=== PATIENT | male | born 1945 | race Caucasian/White ===

== ENCOUNTER 2016-07-16 19:20 | Inpatient (IN) ==
[2016-07-16 20:21] LABS: MANUAL DIFF NEEDED? NO
[2016-07-16 20:23] LABS: BASO% 0.3 % (0.0-0.8); EOS# 0.05 X1000 (0.0-0.7); EOS% 0.7 % (0.0-10.0); HEMATOCRIT 45.7 % (42.0-52.0); HEMOGLOBIN 15.4 g/dL (14.0-18.0); LYMPH# 0.91 X1000 (1.2-3.4); LYMPH% 13.3 % (20.5-51.1); MCH 33.4 PG (27-31); MCHC 33.7 g/dL (33-37); MCV 99.1 FL (81-99); MONO# 0.36 X1000 (0.11-0.59); MONO% 5.2 % (1.7-9.3); MPV 9.5 FL (7.4-10.4); NEUT% 80.5 % (42.2-75.2); PLT 162 X1000 (130-400); RBC 4.61 XMIL (4.7-6.1)
[2016-07-16 20:31] LABS: INR 1.04; PROTIME 10.9 Seconds (9.2-11.7)
[2016-07-16 20:42] LABS: AGAP 12; ALBUMIN 4.3 g/dL (3.5-5.0); ALKALINE PHOSPHATASE 88 U/L (32-122); BUN 11 mg/dL (8-22); CHLORIDE 98 mmol/L (98-107); CK PROFILE 78 U/L (24-204); COSMO 276; GOT 19 U/L (10-34); GPT 19 U/L (10-44); POTASSIUM 4.4 mmol/L (3.5-5.1); SODIUM 138 mmol/L (136-145); TCO2 28 mmol/L (25-35); TOTAL BILIRUBIN 0.43 mg/dL (0.20-1.00)
[2016-07-16] MEDS ORDERED: ATIVAN ONE (21:31)
[2016-07-16] MEDS ORDERED: ATIVAN IV ONE (21:38)
[2016-07-16] MEDS ORDERED: KEPPRA 1,000 MG in NS 100 ML IV ONE (21:44)
[2016-07-17] MEDS ORDERED: THIAMINE IM ONE (00:30)
[2016-07-17] MEDS ORDERED: ATIVAN IV PRN (00:30)
[2016-07-17] MEDS ORDERED: TYLENOL PO PRN (00:30)
[2016-07-17] MEDS ORDERED: ZOFRAN IV PRN (00:30)
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
[2016-07-17 06:36] LABS: MANUAL DIFF NEEDED? NO
[2016-07-17 06:41] LABS: BASO% 0.2 % (0.0-0.8); EOS# 0.14 X1000 (0.0-0.7); EOS% 2.2 % (0.0-10.0); HEMATOCRIT 41.5 % (42.0-52.0); HEMOGLOBIN 13.9 g/dL (14.0-18.0); LYMPH# 1.51 X1000 (1.2-3.4); LYMPH% 23.3 % (20.5-51.1); MCH 33.5 PG (27-31); MCHC 33.5 g/dL (33-37); MONO# 0.51 X1000 (0.11-0.59); MONO% 7.9 % (1.7-9.3); MPV 9.6 FL (7.4-10.4); NEUT% 66.4 % (42.2-75.2); PLT 141 X1000 (130-400); RBC 4.15 XMIL (4.7-6.1)
[2016-07-17 06:59] LABS: AGAP 11; ALBUMIN 3.7 g/dL (3.5-5.0); ALKALINE PHOSPHATASE 71 U/L (32-122); BUN 9 mg/dL (8-22); CHLORIDE 104 mmol/L (98-107); COSMO 279; GOT 16 U/L (10-34); GPT 15 U/L (10-44); POTASSIUM 3.9 mmol/L (3.5-5.1); SODIUM 141 mmol/L (136-145); TCO2 26 mmol/L (25-35); TOTAL BILIRUBIN 0.68 mg/dL (0.20-1.00); TOTAL PROTEIN 6.3 g/dL (6.3-8.3)
--- NOTE | 2016-07-17 07:57 | Diag Imaging Result Document ---
PROCEDURE NAME: HEAD W/O CONTRAST - 07/16/2016 CT OF THE HEAD WITHOUT CONTRAST: FINDINGS: There is marked patient motion. Two acquisitions were obtained. There is no evidence of mass effect, bleed, or abnormal extra-axial fluid collection. The visualized paranasal sinuses are clear and the calvarium is intact. IMPRESSION: No evidence of acute intracranial disease.
--- NOTE | 2016-07-17 08:25 | Diag Imaging Result Document ---
PROCEDURE NAME: CHEST-2 VIEWS - 07/16/2016 FRONTAL AND LATERAL CHEST, TWO VIEWS: FINDINGS: The lungs are well expanded. The heart is not enlarged. The pulmonary vessels are small. No pneumonia. Atelectasis or scarring in the left base. No pleural effusions. No free air beneath the diaphragm. IMPRESSION: Mild increased markings in the left base believed to be atelectasis or fibrosis.
[2016-07-17] MEDS: NS 1,000 ML IV SCH ×4 (10:08→20:36)
[2016-07-17] MEDS: KEPPRA PO SCH ×2 (10:09→20:34)
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
--- NOTE | 2016-07-17 17:12 | Diag Imaging Result Document ---
PROCEDURE NAME: MRI BRAIN W W/O CONTRAST - 07/17/2016 MRI BRAIN WITH AND WITHOUT IV CONTRAST: COMPARISON: None available. FINDINGS: There is no evidence of acute infarct. There is no discrete intracranial mass, mass effect, or intracranial hemorrhage. There is no evidence of abnormal intracranial enhancement. The white matter signal is unremarkable. Surrounding soft tissues and bony structures are grossly unremarkable. IMPRESSION: Essentially unremarkable MRI brain with and without IV contrast.
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
--- NOTE | 2016-07-17 19:32 | EEG REPORT ---
DATE: 07/17/2016 ELECTROENCEPHALOGRAM: #[id number] done on 07/17/2016. COMMENT: This is a digitally recorded EEG on a 70-year-old patient with history suggesting recent onset seizures. FINDINGS: During waking, medium amplitude 10 Hz, posterior rhythm is present bilaterally and reacts at times to eye opening. Background contains polymorphic and rhythmic theta frequencies over the frontal and central regions symmetrically. Frontal delta was minimal but present at times during waking. Photic stimulation did not significantly alter the record. Drowsing occurred briefly with appearance of more generalized slowing and attenuation of the posterior rhythm. Stage II sleep was not recorded. No definite epileptiform discharge was identified. INTERPRETATION: Abnormal electroencephalogram because of minimal generalized slowing. CORRELATION: This is indicative of a diffuse encephalopathy and is nonspecific. The absence of epileptiform discharges on a single EEG does not exclude a clinical diagnosis of seizures. cc: Estela Giraldo III, MD
[2016-07-18] MEDS: NS 1,000 ML IV SCH ×2 (04:10→04:24)
--- NOTE | 2016-07-18 04:39 | PROVIDER DOCUMENTATION ---
This chart was entered by Wagner Montana Scribe, acting as scribe for Zain Bright MD. HPI-Syncope/Dizziness - General Chief Complaint: Syncope Stated Complaint: syncopal episode Time Seen by Provider: 07/16/16 19:31 Source: patient, family Allergies/Adverse Reactions: Patient Allergies Allergy/AdvReac Type Severity Reaction Status Date / Time Penicillins Allergy Unknown Verified 07/17/16 10:18 Home Medications: Home Medication List Medication Instructions Recorded Confirmed Last Taken Type Lisinopril 10 mg PO QHS 07/17/16 07/17/16 07/15/16 History SIMVAstatin [Zocor] 40 mg PO QHS 07/17/16 07/17/16 07/16/16 History Terazosin [Hytrin] 2 mg PO QHS 07/17/16 07/17/16 07/16/16 History - History of Present Illness-Syncope/Dizzy Nature of Presenting Problem: Pt is a 70 yom who presents to ER via EMS after having a possible seizure. Pt's granddaughter reports that earlier today, pt was in the kitchen getting food when he opened the [employer] drawer and "just stopped." Granddaughter reports that pt stood at drawer, not moving, not talking, his hand (laterality unspecified) started shaking, and pt had a blank stare in his face. Granddaughter did not specify how long this lasted but reports that pt then fell to the ground and recovered quickly, but was not aware that he had fallen and stated "I thought I just laid on the ground and took a nap." Family reports that pt has been having an increase in memory impairment and pt states "everything tastes like vinegar." Granddaughter reports that after pt regained responsiveness after falling, he was A/Ox3, but was unaware of what had just happened. Prior Episodes: reports: recent history Onset/Duration: reports: unsure, 1-3 hours ago Timing: reports: improving Position/Activity at time of episode: reports: standing Context: reports: became unresponsive, collapsed, felt faint, confused after event (recent memory impaired, but was A/Ox3), seizure activity observed Loss of Consciousness: prolonged (minutes) Current Symptoms: denies: fever, chills, sweaty, chest pain, breathing difficulty, short of breath, abdominal pain, nausea, vomiting, shoulder pain, arm pain, weakness, lightheaded, dizzy, headache, pale, weak pulse, headache, blurred vision, lightheaded Similar symptoms previously: reports: workup for same problem Recently Seen Here or By Another Healthcare Provider: Yes Review of Systems - Adult - REVIEW OF SYSTEMS - ADULT Constitutional: denies: chills, fever, fatique, night sweats, weight gain, weight loss Eyes: reports: no symptoms reported Ears, Nose, Mouth & Throat: reports: no symptoms reported Cardiovascular: denies: chest pain, edema, heart murmur, irregular heart rate, orthopnea, palpitations, poor circulation, PND, syncope Respiratory: denies: chronic cough, cough, dyspnea on exertion, excessive sputum production, hemoptysis, pleurisy, shortness of breath, wheezing Gastrointestinal: reports: no symptoms reported Genitourinary: reports: no symptoms reported Musculoskeletal: reports: no symptoms reported Integumentary: reports: no symptoms reported Neurological: reports: loss of balance, seizure, slurred speech, syncope, tremors, other (Sensory change (taste)). denies: ataxia, dizziness/vertigo, headache/migraines, numbness, paresthesia Psychiatric: reports: no symptoms reported Endocrine: reports: no symptoms reported Hematologic/Lymphatic: reports: no symptoms reported Allergic/Immunologic: reports: no symptoms reported All Other Systems: Reviewed and Negative Past History - Adult - PAST MEDICAL HISTORY-ADULT Review of Records: reports: Nursing Assessment Review, Medications Reviewed - IMMUNIZATION STATUS Childhood Immunizations: See Nurse Assessment Flu Vaccine: See Nurse Assessment Physical Exam-General - PHYSICAL EXAM-ADULT Initial Vital Signs Reviewed: Yes - CONSTITUTIONAL General Appearance: appears well, alert, mild distress, obtunded. negative: no apparent distress - EYES Eyes: PERRL/EOMI, pink conjunctivae, fundi clear, no AV nicking. negative: EOM palsy, pale conjunctivae, photophobia, sclera injected, scleral icterus - HEAD, EARS, NOSE, MOUTH & THROAT HENMT: normocephalic/atraumatic, moist mucous membranes, normal ENT inspection, TMs normal, pharynx normal - NECK Neck: non-tender, full range of motion, supple, normal inspection. negative: C- spine tenderness, limited range of motion, lymphadenopathy - RESPIRATORY Respiratory: chest non-tender, lungs clear, normal breath sounds, no pleuratic chest pain, no respiratory distress, no accessory muscle use. negative: respiratory distress, decreased breath sounds, accessory muscle use, wheezing - CARDIOVASCULAR Cardiovascular: normal peripheral pulses, regular rate, rhythm. negative: bradycardia, tachycardia, irregularly irregular - GASTROINTESTINAL (ABDOMEN) Abdominal Exam: normal bowel sounds, non tender, soft, no organomegaly, no pulsatile mass. negative: tenderness - MUSCULOSKELETAL Back Exam: normal inspection, no CVA tenderness, no vertebral tenderness. negative: CVA tenderness, decreased range of motion, ecchymosis, muscle spasm, swelling, vertebral tenderness Extremity: normal range of motion, non-tender, normal gait, normal inspection, no pedal edema, no calf tenderness, normal capillary refill. negative: deformity, erythema, inflammation, swelling, tenderness - SKIN Integumentary: normal color, normal turgor, warm/dry. 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 negative: facial droop, focal weakness, motor weakness, sensory deficit - PSYCHIATRIC Psych/Mental Status: normal thought content, normal thought process, oriented x 3, disheveled. negative: normal mood/affect Progress - PLAN OF CARE/RESULTS Progress/Plan/Lab Results: Orders Category Date Time Status Admit - [facility] Routine AdmDCTranf 07/16/16 21:54 Ordered Activity - Bed Rest with BRP ORDERED Care 07/16/16 21:54 Active Activity - Up with Assistance ORDERED Care 07/17/16 00:30 Active Call Admitting on Arrival AT ADMISSION Care 07/16/16 21:54 Active Cardiac Monitoring DIRECTED Care 07/16/16 19:32 Active FSBS/Accucheck Result AC + HS Care 07/17/16 00:30 Active Intake and Output-Strict ORDERED Care 07/17/16 00:30 Active Nursing- MD Consult Request ROUTINE Care 07/17/16 00:30 Active Saline Loc DIRECTED Care 07/16/16 21:54 Active Saline Loc NOW Care 07/16/16 19:32 Active Vital Signs Order ARRIVAL TO ROOM Care 07/16/16 21:54 Active Vital Signs Order Q 8-HR ASSESS Care 07/17/16 00:30 Active Physician/Provider Consults Routine Cons 07/17/16 00:30 Ordered Regular Diet Diet 07/16/16 21:54 Active CHEST-2 VIEWS [RAD] Stat Exams 07/16/16 19:32 Completed HEAD W/O CONTRAST [CT] Stat Exams 07/16/16 21:11 Completed MRI BRAIN W W/O CONTRAST [MRI] Routine Exams 07/17/16 09:00 Draft CBC WITH DIFF [HEME] Routine Lab 07/17/16 06:16 Completed CBC WITH ELECTRONIC DIFF [HEME] Stat Lab 07/16/16 19:50 Completed CK PROFILE [SP CHEM] Stat Lab 07/16/16 19:50 Completed COMPREHENSIVE METABOLIC PANEL [CHEM] Routine Lab 07/17/16 06:16 Completed COMPREHENSIVE METABOLIC PANEL [CHEM] Stat Lab 07/16/16 19:50 Completed D-DIMER [CHEM] Stat Lab 07/16/16 19:50 Completed FOLATE Stat Lab 07/16/16 19:50 Completed GGT [CHEM] Stat Lab 07/17/16 01:15 Completed MAGNESIUM [CHEM] Stat Lab 07/16/16 19:50 Completed MAGNESIUM [CHEM] Stat Lab 07/17/16 01:15 Completed PHOSPHORUS [CHEM] Stat Lab 07/16/16 19:50 Completed PROTIME WITH INR [COAG] Stat Lab 07/16/16 19:50 Completed PTT [COAG] Stat Lab 07/16/16 19:50 Completed TROPONIN T Stat Lab 07/16/16 19:50 Completed TSH Stat Lab 07/17/16 01:15 Completed VITAMIN B12 Stat Lab 07/16/16 19:50 Completed 0.9% Sodium Chloride Inj [Ns] 1,000 ml Med 07/17/16 00:30 Active IV 125 mls/hr Acetaminophen [Tylenol] Med 07/17/16 00:30 Active 650 mg PO Q6H PRN PRN Levetiracetam [Keppra] Med 07/17/16 09:00 Active 750 mg PO BID Levetiracetam [Keppra] 1,000 mg Med 07/16/16 21:44 Discontinued 0.9% Sodium Chloride Inj [Ns] 100 ml IV NOW Lorazepam [Ativan] Med 07/17/16 00:30 Active 1 mg IV Q2H PRN PRN Lorazepam [Ativan] Med 07/16/16 21:31 Discontinued 2 mg .ROUTE .STK-MED ONE Lorazepam [Ativan] Med 07/16/16 21:38 Discontinued 2 mg IV NOW ONE Ondansetron [Zofran] Med 07/17/16 00:30 Active 4 mg IV Q4H PRN PRN Thiamine Med 07/17/16 00:30 Discontinued 200 mg IM NOW ONE Telemetry [OM.EQ] Routine Oth 07/17/16 00:30 Active Transfer/Admit Order [TRANSFER] Routine Transfer 07/16/16 21:55 Completed Result Diagrams: 07/17/16 06:16 07/17/16 06:16 - REASSESSMENT Reassessment #1 Time Reassessed: 21:30 Status: worsening (While in CT (lying on CT bed) pt started seizing. Arrived in CT at 2131, pushed 3mg ativan at 2132. Family was notified of seizure and Dr. Cyrstal dias discussed decision to admit pt. Family verbally acknowledge and agrees.) - XRAY 1 XRAY: Bilateral XRAY Study: Chest Impression: See EMR Report XRAY Interpretation: Normal - ER preliminary - CT/MRI 1 CT Study: Head Impression: See EMR Report CT Results: Negative - CONSULTS/PCP/HOSPITALIST Notification #1 *Consult/PCP/Hospitalist*: Dr. Acevedo (Hospitalist) Time Discussed: 21:45 Consult Disposition: Admit Departure - Departure Time of Disposition Decision: 21:41 DIAGNOSIS: New onset seizure Disposition: ADMITTED INPATIENT 09 Certified Medical Emergency: Emergent Condition: Stable - Critical Care Note This patient required my direct personal management.: Yes This chart was documented by the indicated scribe, (Wagner Montana Scribe) and accurately reflects the services I performed and decisions made by me, Zain Castaneda MD, as attested by the provider's signature.
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
[2016-07-18 11:00] VITALS: BP 131/74
[2016-07-18] MEDS: KEPPRA PO SCH (11:08)
--- NOTE | 2016-07-18 11:29 | PROGRESS NOTE ---
DATE: 07/18/2016 Mr. Sauceda is awake and alert. He has not had any more episodes. He seems to be tolerating his levetiracetam dose. MRI was not remarkable. EEG showed minimal slowing but no epileptiform discharge. I reviewed suggestion with daughter that he not drive for 6 months minimum. We discussed most the likely explanation for seizure onset in this age group with his circumstances as his dementing illness, and that is statistically most likely Alzheimer disease. I suggested that he have a trial with cholinesterase inhibitor. We could start that here, but [facility], and I think it would be reasonable to defer that decision to his primary clinic. He told me today that he drinks 1 bottle of beer with supper and then one stiff shot of bourbon at bedtime daily. I suggested that he consider having one or the other, but not both every day. However, I do not think ethanol overuse or withdrawal were playing a role with any of his recent episodes. Thanks for asking me to see Mr. Sauceda. cc: MD BRANDEE Crews III
== END 2016-07-18 18:14 | disposition home or self-care (01) ==
LOC: ED 19:20 → 4N 07-17 00:05 → SUATTDRO 07-17 00:05
PROVIDERS: ATTEND Emergency Medicine